=== PATIENT | female | born 1985 | race Caucasian/White ===

== ENCOUNTER → 2016-12-05 | Outpatient (CLI) | payer SELFPAY | LOC: MOB LAB 11:45 | PROVIDERS: ATTEND Obstetrics & Gynecology | DX: O26.92 Pregnancy related conditions, unspecified, second trimester (principal); R63.4 Abnormal weight loss; Z3A.19 19 weeks gestation of pregnancy | CPT/HCPCS: 36415; 84443 ==

== ENCOUNTER → 2016-12-11 | Outpatient (CLI) | payer SELFPAY ==
--- NOTE | 2016-12-11 15:57 | DI ---
US OB GTE 14 WEEKS,12/11/2016 1:36 PM: Clinical History: screening Previous Exam: None at this facility. Findings: Multiple grayscale and color Doppler sonographic images are obtained through the pelvis demonstrating a single live intrauterine gestation in vertex presentation. The cervix is long and closed measuring 2.8 cm in length. Detected Doppler heart tones measure 150 beats per minute. Amniotic fluid index is within normal limits. The placenta is anterior and grade 0 without visible defects. There is limited evaluation of the face. There is normal respiratory motion. Estimated gestational age was determined by a composite of biparietal diameter, head circumference, a bdominal circumference and femur length yielding an estimated gestational age by ultrasound of 20 wee ks zero days. Estimated weight was 327 g (54th percentile). Impression: Single live intrauterine gestation with size equal to dates.
== END ==
LOC: US 13:34
PROVIDERS: ATTEND Obstetrics & Gynecology
DX: Z36 Encounter for antenatal screening of mother (principal); Z3A.19 19 weeks gestation of pregnancy
CPT/HCPCS: 76805

== ENCOUNTER → 2016-12-25 | Outpatient (CLI) | payer SELFPAY ==
--- NOTE | 2016-12-25 16:30 | DI ---
LIMITED OBSTETRICAL ULTRASOUND, 12/25/2016 3:27 PM Clinical History: Followup for completion of anatomic survey. Previous Exam: 12/11/2016. ADJUSTED LMP: 07/25/2016. There is a single live IUP currently in unstable presentation. Amnionic fluid content is normal. Feta l activity is observed as follows: cardiac and extremity. The placenta is anterior corpus and Grade 1 . heart rate is 160 beats/minute and regular. Views of the face are obtained in profile a nd en face and are normal. Readin. Single live fetus with unstable presentation and normal amniotic fluid content. Placenta is anter ior corpus and grade 1. 2. Views of the face are obtained and are normal. This completes the anatomic survey.
== END ==
LOC: US 15:24
PROVIDERS: ATTEND Obstetrics & Gynecology
DX: Z36 Encounter for antenatal screening of mother (principal); Z3A.21 21 weeks gestation of pregnancy
CPT/HCPCS: 76815

== ENCOUNTER → 2017-01-01 | Outpatient (CLI) | payer SELFPAY ==
[2017-01-01 16:51] LABS: BLOOD UREA NITROGEN 9 mg/dL (7-22); BUN/CREATININE RATIO 12.85 (6-20); CALCIUM 9.3 mg/dL (8.7-10.7); CHLORIDE 105 meq/L (98-112); CREATININE 0.7 mg/dL (0.50-1.20); EST GLOMERULAR FILTRATION > 60 (>60 ml/min/1.73m(2)); GLUCOSE 97 mg/dL (78-110); SODIUM 138 meq/L (135-145)
== END ==
LOC: MOB LAB 15:52
PROVIDERS: ATTEND Obstetrics & Gynecology
DX: O26.892 Other specified pregnancy related conditions, second trimester (principal); R25.2 Cramp and spasm; Z3A.22 22 weeks gestation of pregnancy
CPT/HCPCS: 36415; 80048

== ENCOUNTER → 2017-01-01 | Outpatient (CLI) | payer SELFPAY ==
--- NOTE | 2017-01-02 08:38 | DI ---
LIMITED OBSTETRICAL ULTRASOUND FOR CERVICAL LENGTH MEASUREMENT, 01/01/2017 4:24 PM: Clinical History: Abnormal short cervical length identified by ultrasound during the second trimester of this . Previous Exam: 12/25/2016. ADJUSTED LMP: 07/25/2016. Multiple transvaginal scans through the mid sagittal plane of the cervix are obtained. The shortest c ervical length measurement is 40 mm. Review of the previous study shows that when measuring the lengt h of the low-density area felt to represent the cervical canal, the estimated measurement would be 43 mm. This suggests there has been no change. Reading: The cervical length measurement is 40 mm.
== END ==
LOC: US 16:19
PROVIDERS: ATTEND Obstetrics & Gynecology
DX: O26.872 Cervical shortening, second trimester (principal); Z3A.22 22 weeks gestation of pregnancy
CPT/HCPCS: 76815

== ENCOUNTER → 2017-01-29 | Outpatient (CLI) | payer OTHER ==
[2017-01-29 15:56] LABS: HEMATOCRIT 37.8 % (37.0-47.0); HEMOGLOBIN 12.5 g/dL (12.0-16.0); MEAN CORPUSCULAR HEMOGLOBIN 31.8 PG (27-31); MEAN CORPUSCULAR HGB CONC 33.1 g/dL (33-37); MEAN CORPUSCULAR VOLUME 96.2 FL (81-99); MEAN PLATELET VOLUME 10.2 FL (7.4-12.2); RED BLOOD COUNT 3.93 10^6/uL (4.20-5.40)
== END ==
LOC: LAB 14:46
PROVIDERS: ATTEND Obstetrics & Gynecology
DX: Z36 Encounter for antenatal screening of mother (principal); Z3A.26 26 weeks gestation of pregnancy
CPT/HCPCS: 36415; 82950; 85027

== ENCOUNTER → 2017-03-09 | Outpatient (CLI) | payer OTHER | LOC: MOB LAB 12:46 | DX: R30.0 Dysuria (principal) | CPT/HCPCS: 87088 ==

== ENCOUNTER 2017-03-11 10:31 | Outpatient (CLI) | payer OTHER ==
[2017-03-11] MEDS ORDERED: LIDOCAINE W/ SODIUM BICARB 0.5 ML SYR SUBD PRN (11:15)
[2017-03-11] MEDS ORDERED: NORMAL SALINE 10 ML SYRINGE FLUSH IVP PRN (11:15)
[2017-03-11 12:12] LABS: HEMATOCRIT 40.6 % (37.0-47.0); HEMOGLOBIN 13.4 g/dL (12.0-16.0); MEAN CORPUSCULAR VOLUME 95.5 FL (81-99); RED BLOOD COUNT 4.25 10^6/uL (4.20-5.40)
[2017-03-11 12:13] LABS: MEAN CORPUSCULAR HEMOGLOBIN 31.5 PG (27-31); MEAN PLATELET VOLUME 10.9 FL (7.4-12.2)
--- NOTE | 2017-03-11 13:05 | DI ---
US RETROPERITONEUM,03/11/2017 11:19 AM: Clinical History: Costovertebral angle tenderness. Previous Exam: None at this facility. Findings: Multiple grayscale and color Doppler sonographic images are obtained through the retroperitoneum, and demonstrate a normal-appearing right kidney measuring 12.4 cm in length. The left kidney measures 8.8 cm in length without hydronephrosis nor nephrolithiasis. There is a simple cyst noted within the superior medial cortex. The urinary bladder is unremarkable. The left ureteral jet was identified. The right ureteral jet was never identified. Impression: No obstructive uropathy.
[2017-03-11 13:12] LABS: BLOOD UREA NITROGEN 10 mg/dL (7-22); CALCIUM 9.1 mg/dL (8.7-10.7); EST GLOMERULAR FILTRATION > 60 (>60 ml/min/1.73m(2)); SERUM ALBUMIN 3.8 g/dL (3.5-4.8)
[2017-03-11 14:05] LABS: BILIRUBIN,URINE NEGATIVE (NEG); COLOR,URINE YELLOW; GLUCOSE, URINE (UA) NEGATIVE (NEG); NITRATE,URINE NEGATIVE (NEG); OCCULT BLOOD,URINE LARGE (NEG); PH,URINE 6.5 (5.0-8.5); PROTEIN,URINE NEGATIVE (NEG); UROBILINOGEN,URINE 0.2 mg/dL (0.2)
[2017-03-11 14:06] LABS: CLARITY,URINE SLIGHTLY CLOUDY (CLEAR); RBC,URINE >100 /hpf; URINE SAMPLE TYPE CLEAN CATCH URINE; WBC,URINE 0
--- NOTE | 2017-03-11 14:31 | PDOC(PROG) ---
Intake - - Reason for Visit/Chief Complaint: Other (The patient is a 31-year-old 001 at 32-1/2 weeks gestation who called my nurse this morning with the complaint of severe pain with urination, left sided back pain and low-grade fevers at home. The patient was started on nitrofurantoin for presumed urinary tract infection 2 days previously. The patient was seen in the acute care clinic or urgent care clinic with the complaint of dysuria and urinalysis was essentially normal with urine culture is not growing out of specific bacteria. The patient' s symptoms have continued over the past several days and the patient presented to labor and delivery after calling my nurse. The patient's symptoms of a low- grade fever, pain with urination and also just a general malaise. When I spoke with the patient this afternoon, the patient had already had her renal ultrasound bilaterally and labs completed. The patient stated that she has had severe pain with urination over the past several days. No bleeding. The patient has also had back pain but it is lower back pain and now bilateral. The patient has had a temperature up to 99.5 at home but has been using Tylenol to help her symptoms. The patient stated that the catheter urinalysis was extremely painful secondary to the discomfort the patient has. The patient does not have a history of herpes simplex virus. However, last week her did have a lesion on his lower lip that was new and perhaps was a new onset herpes lesion. The patient does have a history of significant reflux in her kidney and her left kidney apparently does not function as well as her right kidney secondary to the reflux. OB history significant for vaginal delivery after SROM. Past medical history significant for her left kidney not functioning well and this stems from significant reflux that the patient had as a and then as a child. This was really diagnosed during her last . Past surgical history breast augmentation No known drug allergies Tobacco cessation about 3 or 4 weeks ago. 5 cigarettes per day at that time. Alcohol occasional none now No drugs OB history with vaginal delivery 1 about 17 years ago. Vaginal delivery after 32 hours a labor and the baby was 7 lbs. 10 oz. 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 No history of HSV. Currently, the patient states that when she is not trying to avoid, the patient does not have significant vaginal pain.) Maternal - Additional Details Additional Details: Lungs clear to auscultation Heart regular rate and rhythm Abdomen is gravid, soft and nontender Back without CVA tenderness bilaterally. The patient does have some low back paraspinous muscle tenderness External genitalia within normal limits Periurethral with slight erythema on the right labia minora but no ulcerations. Speculum exam and bimanual exam were not performed. Results - Labs CBC and BMP: 03/11/17 11:16 03/11/17 11:16 Additional Lab Results: Urinalysis had greater than 100 red blood cells but this was after the catheter urine was completed. No white blood cells. No protein. Urinalysis from 2 days ago was only a dip urinalysis. No micro-. Trace blood. Nothing other significant. Urine culture from 2 days previously was contaminated. No specific bacteria grew out on the culture. Assessment and Plan - Assessment / Plan Additional Assessment/Plan Details: Assessment: IUP 32-1/2 weeks with significant dysuria. Urinalysis shows no white blood cells today and urine culture from 2 days ago did not grow specific back area and urine dip from 2 days ago did not show a large amount of blood or white blood cells. Today's UA with micro-did show a significant amount of blood but this was after the catheter urine specimen was obtained and then the patient voided. There were no specific ulcerations visualized by the nurse's exam or by my exam today. The patient's did have a new lesion on his lower lip that may be herpetic in origin. The patient has significant pain with urination but essentially the urinalysis was normal except for the red blood cells were greater than 100 but this was after the catheter specimen was completed and may have irritated the patient's urethra or periurethral area. The patient's white count is less than 10. Her H&H and platelets are normal. Patient's creatinine is 0.8. Her BUN was 10. Other labs are normal. The patient's ultrasound of her kidneys bilaterally did not show hydronephrosis or did not show dilation of the patient's ureters. There was a small cyst in the left kidney. Also, the left kidney was smaller than her right kidney which is consistent with the patient's history of having reflux and perhaps a slight injury to the left kidney at an earlier age. Plan: The patient may complete her course of nitrofurantoin I would like to add Valtrex 1000 mg by mouth 2 times a day for 7-10 days and perhaps then again at 36 weeks I would like to treat the patient with a suppressive dose to try to prevent a herpes outbreak towards the end of the . If the patient does develop lesions, the patient should let us know but the treatment is Valtrex. The patient should return for increased symptoms. I did explain to the patient that often a patient will have significant pain before lesions develop. However, often the pain is present more often than just with voiding. However, the patient does not have a UTI by UA with micro- today or urinalysis the other day or urine culture the other day. With the patient's having the lesion on his lower lip that could be herpetic in etiology, I would like to treat the patient with an antiviral medication such as Valtrex. The patient expressed understanding. A ozzie-bottle should be used when the patient voids. Also, pyridium could be used for 2 days try to improve the patient's symptoms. Tylenol as needed. The patient's symptoms worsen, the patient should return sooner. - Time Time Spent With Patient: 15-25 Minutes
[2017-03-11 17:47] VITALS: RESP 18; TEMP 97.8
== END 2017-03-11 15:55 | disposition home or self-care (01) ==
LOC: OBOP 10:31
PROVIDERS: ATTEND Obstetrics & Gynecology
DX: O26.893 Other specified pregnancy related conditions, third trimester (principal); R30.0 Dysuria; R50.9 Fever, unspecified; Z3A.32 32 weeks gestation of pregnancy
CPT/HCPCS: 59025; 76770; 80053; 81001; 85027; 87088; 99211

== ENCOUNTER → 2017-03-13 | Outpatient (CLI) | payer OTHER ==
[2017-03-13 10:50] LABS: CLARITY,URINE CLEAR (CLEAR); COLOR,URINE ORANGE; RBC,URINE 25-30 /hpf; URINE SAMPLE TYPE CLEAN CATCH URINE
[2017-03-13 10:51] LABS: BACTERIA,URINE FEW; SQUAMOUS EPITHELIAL CELL,UR RARE
== END ==
LOC: MOB LAB 10:02
PROVIDERS: ATTEND Obstetrics & Gynecology
DX: O26.893 Other specified pregnancy related conditions, third trimester (principal); R30.0 Dysuria; Z3A.33 33 weeks gestation of pregnancy
CPT/HCPCS: 81001; 87088; 87185; 87205

== ENCOUNTER → 2017-03-19 | Outpatient (CLI) | payer SELFPAY ==
[2017-03-19 16:23] LABS: BILIRUBIN,URINE NEGATIVE (NEG); CLARITY,URINE CLEAR (CLEAR); COLOR,URINE YELLOW; GLUCOSE, URINE (UA) NEGATIVE (NEG); NITRATE,URINE NEGATIVE (NEG); OCCULT BLOOD,URINE NEGATIVE (NEG); PROTEIN,URINE NEGATIVE (NEG); UROBILINOGEN,URINE 0.2 mg/dL (0.2)
[2017-03-19 16:57] LABS: BACTERIA,URINE RARE; RBC,URINE 0-1 /hpf; SQUAMOUS EPITHELIAL CELL,UR RARE; URINE SAMPLE TYPE CLEAN CATCH URINE; WBC,URINE 0-1
== END ==
LOC: MOB LAB 15:49
PROVIDERS: ATTEND Obstetrics & Gynecology
DX: O26.893 Other specified pregnancy related conditions, third trimester (principal); R31.9 Hematuria, unspecified; Z3A.33 33 weeks gestation of pregnancy
CPT/HCPCS: 81001

== ENCOUNTER → 2017-04-02 | Outpatient (CLI) | payer OTHER | LOC: MOB LAB 15:47 | PROVIDERS: ATTEND Obstetrics & Gynecology | DX: Z36 Encounter for antenatal screening of mother (principal); Z3A.35 35 weeks gestation of pregnancy | CPT/HCPCS: 87150 ==

== ENCOUNTER 2017-04-16 15:32 | Outpatient (CLI) | payer SELFPAY ==
[2017-04-16] MEDS ORDERED: NORMAL SALINE 10 ML SYRINGE FLUSH IVP PRN (15:56)
[2017-04-16 16:00] VITALS: RESP 16; TEMP 97.9
--- NOTE | 2017-04-16 17:47 | DI ---
US OB , LIMITED,04/16/2017 4:19 PM: Clinical History: Decreased motion. Previous Exam: None at this facility. Findings: Multiple grayscale and color Doppler sonographic images are obtained through the pelvis demonstrating a normal amniotic fluid index (14.0 cm). Detected Doppler heart tones measured 132 beats per minute. The fetus lies in the vertex presentation. Impression: Single live intrauterine gestation with normal amniotic fluid index (14 cm).
--- NOTE | 2017-04-18 09:59 | PDOC(PROG) ---
Intake - - Reason for Visit/Chief Complaint: Decreased Movement Admitted From: Home - LMP: 07/25/16 Estimated Due Date: 05/01/17 Gestational Age in Weeks and Days: 38 Weeks and 1 Days : 2 Para: 1 Term Births: 1 Births: 0 Number of Abortions (Spont./Elective): 0 Living Children: 1 - Labs Blood Type and Rh: A+ Group B Strep: Negative Maternal - Vital Signs Last Taken Vital Signs: Vital Signs - Last Taken Temperature 97.9 F 04/16/17 15:58 Pulse Rate 83 04/16/17 15:58 Respiratory Rate 16 04/16/17 15:58 Blood Pressure 135/75 04/16/17 15:58 Pulse Ox 97 04/16/17 15:58 - Uterine Activity Uterine Contraction Monitor Mode: External Uterine Contraction Pattern: Absent - Vaginal Discharge Vaginal Bleeding Amount: None Vaginal Discharge Amount: None Monitoring - Uterine Activity Uterine Contraction Monitor Mode: External Uterine Contraction Pattern: Absent Results - Bedside Testing Bedside Urine Ketone: Negative Bedside Urine Leukocytes Esterase: Negative Bedside Urine Nitrite: Negative Bedside Urine Occult Blood: Negative Bedside Urine Protein: Negative Bedside Specific Ider: 1.005 Assessment and Plan - Assessment / Plan Additional Assessment/Plan Details: Assessment: IUP 38+ weeks. The patient saw me in clinic and had noted perhaps decreased movement. Nonstress test was reactive and JG was normal in labor and delivery. The patient was sent home with movement precautions. The patient will see me in one week. The patient understands to contact labor and delivery for any questions or decreased movement or regular contractions.
== END 2017-04-16 17:30 | disposition home or self-care (01) ==
LOC: OBOP 15:32
PROVIDERS: ATTEND Obstetrics & Gynecology
DX: O36.8130 Decreased fetal movements, third trimester, not applicable or unspecified (principal); Z3A.37 37 weeks gestation of pregnancy
CPT/HCPCS: 59025; 76815; 81003; 99211

== ENCOUNTER 2017-04-29 16:21 | Inpatient (IN) | payer OTHER ==
[2017-04-29] MEDS ORDERED: diphenhydrAMINE 50 MG/1 ML VIAL IVP PRN (16:48)
[2017-04-29] MEDS ORDERED: Phenylephrine Inj 50 MCG in Normal Saline Flush 0.5 ML IVP PRN (16:48)
[2017-04-29] MEDS ORDERED: LIDOCAINE W/ SODIUM BICARB 0.5 ML SYR SUBD PRN (16:48)
[2017-04-29] MEDS ORDERED: CefOXitin Inj 2 GM in Sodium Chloride 0.9% 100 ML IV PRN (16:48)
[2017-04-29] MEDS ORDERED: CALCIUM CARBONATE 500 MG (TUMS) CHEWABLE TABLET PO PRN (16:48)
[2017-04-29] MEDS ORDERED: Famotidine Inj 20 MG in Normal Saline Flush 10 ML IVP PRN ×4 (16:48)
[2017-04-29] MEDS ORDERED: Carboprost Inj 250 MCG/ML AMP IM PRN (16:48)
[2017-04-29] MEDS ORDERED: CITRIC ACID/SODIUM CITRATE 30 ML CUP PO PRN (16:48)
[2017-04-29] MEDS ORDERED: TERBUTALINE SULFATE 1 MG/1 ML SDV SUBCUT PRN (16:48)
[2017-04-29] MEDS ORDERED: METHYLERGONOVINE MALEATE 0.2 MG/1 ML VIAL IM PRN (16:48)
[2017-04-29] MEDS ORDERED: ONDANSETRON 4 MG/2 ML VIAL IVP PRN (16:48)
[2017-04-29] MEDS ORDERED: Nalbuphine Inj 20 MG/ML Ampule IVP PRN (16:48)
[2017-04-29] MEDS ORDERED: Lidocaine 1% 10 MG/ML - 20 ML VIAL SUBCUT PRN (16:48)
[2017-04-29] MEDS ORDERED: Metoclopramide Inj 10 MG/2 ML VIAL IV PRN (16:48)
[2017-04-29] MEDS ORDERED: NALOXONE 0.4 MG/1 ML VIAL IVP PRN (16:48)
[2017-04-29] MEDS ORDERED: MISOPROSTOL 200 MCG TABLET RECTAL PRN (16:48)
[2017-04-29] MEDS ORDERED: BUTORPHANOL TARTRATE 2 MG/1 ML VIAL IVP PRN (16:48)
[2017-04-29] MEDS ORDERED: Naloxone Inj 0.01 MG in Normal Saline Flush 1 ML IVP PRN (16:48)
[2017-04-29] MEDS ORDERED: NORMAL SALINE 10 ML SYRINGE FLUSH IVP PRN (16:48)
[2017-04-29] MEDS ORDERED: Oxytocin 20 Units + LR 1,000 ML IV SCH (17:00)
[2017-04-29] MEDS: Misoprostol Tab 100 MCG TAB VAGINAL SCH ×2 (20:23→23:00)
--- NOTE | 2017-04-29 20:23 | OB.PROGRES ---
Interval History: The patient is a 31-year-old 001 at 39-5/7 weeks who presented to labor and delivery earlier today stated that she had not been feeling well over the weekend. Positive movement, no leak of fluid, no bleeding. No regular contractions. Positive right upper quadrant pain but the patient could not determine if it was secondary to position and the baby's feet in the right upper quadrant. Labs were obtained which showed an H&H with hemoconcentration of 14 and 41, normal platelets, creatinine of 0.9 and normal liver function tests. Last week we had discussed induction of labor with cervical ripening today at 39-5/7 weeks for elective induction of labor and extreme emotional lability. The patient's emotional lability has improved but the patient has not been feeling well so the patient is admitted for induction of labor with cervical ripening. In clinic today the patient's cervix was 2-3 cm/50% effaced -2 station and moderate in consistency. The patient's has been complicated with low back pain in the mid second trimester. Other than that the patient had a normal Glucola and group B strep was negative. The patient has had some intermittent right upper quadrant pain and labs and an ultrasound of her kidneys was obtained in the middle of February 2017 which were normal. OB history significant for vaginal delivery after SROM. 7 lbs. 4 oz. Past medical history significant for her left kidney not functioning well and this stems from significant reflux that the patient had as a and then as a child. This was really diagnosed during her last . Past surgical history breast augmentation No known drug allergies Tobacco cessation about 3 or 4 weeks ago. 5 cigarettes per day at that time. Alcohol occasional none now No drugs OB history with vaginal delivery 1 about 17 years ago. Vaginal delivery after 32 hours a labor and the baby was 7 lbs. 10 oz. 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 Objective - Cervical Exam Cervical Exam: 2-3/50/-2 cephalic presentation [place]: Some uterine irritability. No regular contractions Heart Rate Interpretation Category: Category I Assessment and Plan - Assessment / Plan Additional Assessment/Plan Details: Assessment: IUP 39-5/7 weeks with negative GBS Patient has just not been feeling well the last several days although positive movement and blood pressure was normal in the clinic today. Labs showed slight hemoconcentration with an H&H 14 and 41 but normal platelets. Liver function tests were normal. Creatinine was 0.9. Membranes were gently swept in the clinic today. No blood with sweeping membranes. Plan: Admit and cervical ripening with Cytotec which is used for stomach ulcers but BAND TIER's of study this extensively over the past 20 years and I discussed this with the patient. We use a low dose for cervical ripening and higher dose sometimes for hemorrhage. Patient expressed understanding to using Cytotec. Consent form was signed for an elective induction although I think that this induction is more medically indicated secondary to the patient not feeling well and not feeling herself considering she is over 39 weeks' gestation. Blood pressures again were normal. Cytotec 25 g per vagina every 4-6 hours if no regular contractions and cervix still need cervical ripening. External monitoring Clear liquids Observe the patient closely.
[2017-04-30] MEDS ORDERED: Oxytocin 20 Units + LR 1,000 ML IV SCH ×2 (02:30→05:45)
[2017-04-30] MEDS: Lactated Ringers-OB Dept 1,000 ML PRIMARY IV SCH ×4 (06:40→20:25)
[2017-04-30] MEDS: Misoprostol Tab 100 MCG TAB VAGINAL SCH ×3 (07:27→14:28)
--- NOTE | 2017-04-30 10:22 | OB.PROGRES ---
Interval History: Currently the patient states that she cannot feel contractions but she can feel some cramping. The patient did not sleep last night. She did rest. The patient has had no bleeding and no gush of fluid. Positive movement. Objective - Cervical Exam Cervical Exam: 3 (tight)/50/-3 cephalic moderately firm in consistency. Membranes swept gently. No blood on my glove after sweeping membranes [place]: Contractions every 2-3 minutes-patient cannot really feel these contractions Heart Rate Interpretation Category: Category I - Vital Signs Last Taken Vital Signs: Vital Signs - Last Taken Temperature 98.0 F 04/30/17 02:45 Pulse Rate 70 04/30/17 05:15 Respiratory Rate 18 04/30/17 03:15 Blood Pressure 123/85 04/30/17 03:15 Pulse Ox 96 04/30/17 06:40 - Additional Details Additional Details: Abdomen is gravid and soft and nontender without guarding or rebound Assessment and Plan - Assessment / Plan Additional Assessment/Plan Details: IUP 39-6/7 weeks Cervix has changed minimally since yesterday afternoon when I checked her in the office. The patient has been administered 1 dose of Cytotec 25 g last evening and early this morning the patient was feeling cramping or contractions every 2-3 minutes so the next dose of Cytotec was not administered. Pitocin was started around 0215 hrs. to 0230 hrs. this morning since the second dose of Cytotec could not be given at that time. Pitocin has been administered since that time with contractions every 1-2 to 2-3 minutes and minimal cervical ripening has been noted. Category 1 heart rate tracing. Blood pressures are normal. Group B strep negative on 04/02/2017 Plan: I discussed with the patient and her my thoughts. I would like to continue the Pitocin for cervical ripening until around 1700 hrs. today. If the patient's cervix has not changed significantly by that time, I would like to stop the Pitocin and have the patient eat a light regular meal and then have the patient rest for several hours (5 or 6 hours). I would most likely give the patient 5 mg of Ambien to help her sleep prior to eating so that it can start to take effect and she can then rest. Once rested, I would like to then administer Cytotec 25 g if the patient is not [place] every 2-3 minutes at that time. If the patient is [place], I would administer Pitocin to continue cervical ripening with that method. The patient has expressed understanding with this current plan. The patient did ask if there was a time where she could actually stopped this and go home, and I expressed to the patient that she could do this at any time and we could attempt this again in a couple days. However, I would like to try the above to determine if this allows for cervical ripening. Then tomorrow afternoon, patient could go home if cervical ripening has not occurred. Of course, as long as the patient's blood pressures are normal and labs are normal. Of significant note, the patient is not upset but she was just asking that question because her cervix is not ripening currently. I expressed understanding with her concerns and questions.
--- NOTE | 2017-04-30 16:49 | OB.PROGRES ---
Interval History: The patient has started to feel her contractions over the past 2-3 hours. No gush of fluid. No bleeding. The patient feels the contractions in her lower abdomen and not her back. Objective - Cervical Exam Cervical Exam: /-2. I can palpate the amniotic sac. I could not determine the exact presentation but the baby may be in the OP presentation currently [place]: Every 2-3 minutes on 6 milliunits of Pitocin Heart Rate Interpretation Category: Category I - Vital Signs Last Taken Vital Signs: Vital Signs - Last Taken Temperature 97.6 F 04/30/17 15:00 Pulse Rate 87 04/30/17 12:53 Respiratory Rate 20 04/30/17 12:53 Blood Pressure 141/83 04/30/17 12:53 Pulse Ox 97 04/30/17 12:53 - Additional Details Additional Details: Abdomen soft and nontender without guarding or rebound Assessment and Plan - Assessment / Plan Additional Assessment/Plan Details: Assessment: IUP 39-6/7 weeks with some cervical change with cervical ripening with low-dose Pitocin. GBS negative history There were a couple blood pressures with a diastolic of 141 but these were with contractions. When not [place], the blood pressures have been normal. Urine dip yesterday was negative for protein. Plan: The patient and her are now discussing whether or not they would like to continue with the cervical ripening with the Pitocin at 6 milliunits. I offered the patient to turn the Pitocin off and wait one to 2 hours to determine if her contractions stop and then allow her to eat and sleep and then restart cervical ripening early in the morning. That was the plan several hours ago but now the patient is considering continuing. I explained to the patient that I do not want to cause the patient to SROM with the Pitocin, although she may spontaneously SROM even if I stopped the Pitocin, and cause a prolonged labor after SROM and the increased potential of a C- section. Patient expressed understanding but is considering her options. The patient is tired but she says she has napped a little bit on and off this afternoon. Addendum: The patient and her decided that they would like to continue the Pitocin until 1930 hrs. At that time, the patient's cervix will be checked and if there is no significant change, the Pitocin be stopped and the patient will be observed to determine if the contractions slow down. If her contractions slow down, the patient may eat around 2030 hrs. to 2100 hrs. Then the patient will rest and then we will restart cervical ripening early in the morning around 0300 hrs. I may prescribe Ambien. The patient will continue external monitoring. If the patient has changed her cervix significantly, the patient may decide that she would like to have AROM and then continue the labor process. If the patient SROM's but her cervix is unchanged, and an IUPC will be placed and Pitocin will be administered per IUPC results. 200 [place] units in 10 minutes.
[2017-04-30] MEDS: fentaNYL Inj 100 MCG/2 ML VIAL IV PRN ×4 (17:18→19:39)
[2017-04-30] MEDS: ePHEDrine Inj 5 MG in Normal Saline Flush 1 ML IVP PRN ×2 (20:55→20:58)
[2017-04-30] MEDS ORDERED: Fent/Bupiv 2mcg/0.0625% Epid 250 ML ONE (20:56)
--- NOTE | 2017-04-30 21:05 | CRNA.PROCE ---
Central Neuraxis Block Placemt - - Safety Measures: Time Out Taken, Site Verified - - Type of Block: Epidural Reason for Block: Analgesia Moniters Used During Block: SPO2, NIBP Positioning: Sitting Skin Prep Used: ChloroPrep Draped: Yes Spinal Needle Used: 18 Hustead 80 mm Local Anesthetic - Enter Amount Used in Comment Field: 1.5 % Xylocaine with Epinephrine 1:200,000 (mL): Yes (5ml) Number of Centimeters Catheter Threaded: 4 Bioclusive Dressing Applied: Yes
[2017-04-30] MEDS ORDERED: fentaNYL 2 MCG/BUPIVACAINE 0.0625%/NS 0.9% 250 ML BAG EPIDURAL SCH (21:15)
[2017-04-30] MEDS ORDERED: HYDROXYZINE PAMOATE 25 MG CAPSULE PO ONE (21:24)
--- NOTE | 2017-04-30 21:32 | OB.PROGRES ---
Interval History: The patient is comfortable now that she had her epidural. Earlier, the patient wanted the Pitocin stopped. It was at 6 milliunits but the contractions were intense even after having fentanyl. The patient requested that the Pitocin be discontinued. The Pitocin was discontinued and 90 minutes later the patient was still having painful contractions though they were 3-6 minutes apart. The patient then requested an epidural and now the patient is comfortable. The patient wishes to sleep now. Currently, she does not want AROM. Objective - Cervical Exam Cervical Exam: /-2 cephalic and cervix is soft. Membranes were palpated [place]: Irregular contractions every 3-6 minutes off Pitocin Heart Rate Interpretation Category: Category I - Vital Signs Last Taken Vital Signs: Vital Signs - Last Taken Temperature 97.6 F 04/30/17 15:00 Pulse Rate 87 04/30/17 12:53 Respiratory Rate 20 04/30/17 12:53 Blood Pressure 141/83 04/30/17 12:53 Pulse Ox 97 04/30/17 19:00 - Additional Details Additional Details: Abdomen is gravid, soft and nontender without guarding or rebound By Arvin's the baby's head is cephalic presentation. The baby's back palpates the patient's abdomen in the midline Assessment and Plan - Assessment / Plan Additional Assessment/Plan Details: Assessment: IUP 39-6/7 weeks with cervical ripening over the past 24 hours with the cervix now 4 cm and 90% effaced. The patient had significant pain even after the Pitocin was stopped so the patient requested an epidural which was placed and now the patient is comfortable. Patient also has a Vences catheter in place. Currently, the patient's membranes are intact and the patient does not wish artificial rupture of membranes currently. The patient wishes to sleep now. Blood pressures have been normal and actually slightly low after the epidural and ephedrine was given. Plan: I have ordered hydroxyzine or Atarax 25 mg by mouth 1 dose. The patient will contract on her own. I may start Pitocin early in the morning and then offer the patient AROM again if the patient has rested. The patient may spontaneously continue the labor and SROM and the patient will be evaluated from that point. The patient is group B strep negative. Clear liquids now that she has the epidural in place. Observe the patient closely. - Time Time Spent With Patient: 15-25 Minutes
[2017-05-01] MEDS: Lactated Ringers-OB Dept 1,000 ML PRIMARY IV SCH ×3 (04:38→13:10)
[2017-05-01] MEDS: Misoprostol Tab 100 MCG TAB VAGINAL SCH (06:19)
--- NOTE | 2017-05-01 06:52 | OB.PROGRES ---
Interval History: The patient slept last night. Patient is comfortable. No problems. Still slightly groggy from the hydroxyzine that was given to the patient last evening to assist her in sleeping. Objective - Cervical Exam Cervical Exam: 4/c/0 AROM with clear fluid [place]: 5 milliunits Pitocin-contractions every 2-3 minutes Heart Rate Interpretation Category: Category I - Vital Signs Last Taken Vital Signs: Vital Signs - Last Taken Temperature 98.4 F 05/01/17 04:00 Pulse Rate 82 05/01/17 04:00 Respiratory Rate 18 05/01/17 04:00 Blood Pressure 114/67 05/01/17 04:00 Pulse Ox 96 05/01/17 04:00 Assessment and Plan - Assessment / Plan Additional Assessment/Plan Details: Assessment: IUP 40 weeks gestation with induction of labor with cervical ripening. Patient's cervix is now 4 cm and completely effaced. The baby's head is at 0 station. AROM with clear fluid. Patient has been afebrile. Blood pressures have been normal. Group B strep was negative. Plan: Reevaluate for cervical change in 2 hours. If no cervical change, IUPC Pitocin was decreased at 3 milliunits secondary to AROM. Will increase depending upon external toco. Observe closely.
[2017-05-01] MEDS ORDERED: LIDOCAINE MPF 2% - 5 ML (20 MG/1 ML) ONE (08:39)
--- NOTE | 2017-05-01 09:24 | OB.PROGRES ---
Interval History: Patient had to have her epidural topped off that now she is feeling better. She had significant pelvic pressure before but not currently. Objective - Cervical Exam Cervical Exam: 8-9/c/0 cephalic [place]: Contractions every 2-3 minutes on 5 milliunits Pitocin Heart Rate Interpretation Category: Category I - Vital Signs Last Taken Vital Signs: Vital Signs - Last Taken Temperature 98.2 F 05/01/17 06:45 Pulse Rate 99 05/01/17 08:00 Respiratory Rate 18 05/01/17 08:00 Blood Pressure 126/72 05/01/17 08:00 Pulse Ox 95 05/01/17 08:00 Assessment and Plan - Assessment / Plan Additional Assessment/Plan Details: Assessment: IUP 40 weeks gestation with active labor with cervical change. Cervix is now 8-9 cm and 0 to +1 station Plan: Continue Pitocin We will set the patient up in the bed to hopefully help the baby descended into the pelvis more Continue care and expectant management
[2017-05-01] MEDS ORDERED: Chloroprocaine 3% MPF (30mg/ml) 20ml vial ONE (10:46)
--- NOTE | 2017-05-01 11:46 | OB.PROGRES ---
Interval History: The patient comfortable. Epidural was topped off again. Objective - Cervical Exam Cervical Exam: ant lip of cervix/ c/0 to +1 station [place]: Frequency of contractions difficult to determine since they are not picking up well currently. Patient on 5 milliunits of Pitocin Heart Rate Interpretation Category: Category I - Vital Signs Last Taken Vital Signs: Vital Signs - Last Taken Temperature 98.2 F 05/01/17 06:45 Pulse Rate 114 H 05/01/17 10:00 Respiratory Rate 18 05/01/17 10:00 Blood Pressure 124/75 05/01/17 10:00 Pulse Ox 94 05/01/17 11:24 Assessment and Plan - Assessment / Plan Additional Assessment/Plan Details: Assessment: IUP 40 weeks with some cervical change progress with anterior lip of cervix palpated. Patient to be placed in steep Fowlers presentation to hopefully help head to descend and anterior lip of the cervix to reduce. Plan: Continue to observe closely Expectant management
[2017-05-01] MEDS ORDERED: fentaNYL Inj 100 MCG/2 ML VIAL ONE (12:03)
--- NOTE | 2017-05-01 12:09 | CRNA.PROGR ---
Anesthesia Note Anesthesia Progress Note: 842 -5 ml of 2% Lido mpf via epidural. 1043- 8 ml of 3 % Nesacaine epidural catheter. 1200- 50 mcgs Fentanyl iv for Left lower quadrant window- Now pushing. 1252-50 mcgs Fentanyl iv-for placental extraction 1252 10 ml of 3% Nesacaine via epidural catheter for placental extraction 1303 2 Gram Cefoxitin iv per Dr. Floyd verbal order
--- NOTE | 2017-05-01 13:49 | OB.OP.NOTE ---
Operative Report Surgeon: Everett Anesthesia Type: Regional (Epidural IV fentanyl), Local (1% lidocaine for episiotomy) Anesthesia Provider: Germania Wells CRNA (Guillermo Shaw and then Germania Wells) Surgery Date: 05/01/17 Preoperative Diagnosis: IUP 40 weeks. Maternal exhaustion and extreme maternal discomfort. Small umbilical cord Postoperative Diagnosis: Same. Avulsion of umbilical cord from placenta Procedure: Induction of labor. Cervical ripening with Cytotec and then Pitocin. Pitocin augmentation of labor. Artificial rupture of membranes. Attempted low vacuum delivery-please see operative report. Spontaneous vaginal delivery over midline episiotomy. manual extraction of placenta. Repair of episiotomy Estimated Blood Loss (mL): 800 Fluids: Pitocin post , post manual extraction of placenta Complications: None apparent Findings at Surgery: Small attenuated umbilical cord Findings were a female infant with Apgars 6 at 1 minute, 6 at 5 minutes, and 6 at 10 minutes with 2 off for tone Weight is currently pending Nuchal cord 2 reduced after the baby was delivered Blood gas showed a pH of 7.172, PCO2 of 40.2, HCO3 of 14.7, base excess of -14 Midline episiotomy without extension-repaired Avulsion of umbilical cord from placenta Manual extraction of placenta with gentle exploration of the patient's uterus Indications for the Procedure: The patient underwent induction of labor with cervical ripening at 39-5/7 weeks secondary to the patient requesting it initially but then patient not feeling well for several days prior to induction. Please see my notes Description of Procedure: I was contacted by labor and delivery secondary to the patient having significant left lower quadrant pain and the cervix was an anterior lip. The patient did have an epidural and previously, the epidural was providing good pain relief. On exam of her cervix, the patient had an anterior lip of her cervix which was reducible. I reduced the cervix and had the patient push and this helped relieve the patient's pain temporarily. However, the patient's pain returned and the patient stated that she needed pain relief. Anesthesia was consulted and 50 g of fentanyl IV was given to the patient at the beginning of the second stage of labor. The epidural was not dosed secondary to anesthesia determining that the patient would not be able to have a good expulsive effort if lidocaine was administered via the epidural. The patient started pushing with contractions and brought the baby down from +1 station to +3 station over a moderate time period. During the first stage of labor, heart rate tracing was category 1. During the second stage of labor there were variations of the heart rate secondary to pushing and descent of the baby's head. Secondary to the patient's significant pain and after the patient had brought the baby down that during pushing the baby's scalp was visible on the perineum without the patient's labia, I offered the patient a vacuum-assisted vaginal delivery. The patient readily agreed. The Vences catheter had just been removed from the patient's bladder. The baby was in the OA presentation by exam. The vacuum was placed and I applied suction to the green area and then started to pull gently with the patient having a contraction and pushing but the edge of the vacuum was near a fontanelle so I reduced the pressure and removed the vacuum. The patient continued pushing for that cycle of pushes. I then placed the vacuum again and it was found to be appropriately placed and a vacuum to the green area was completed. With the patient pushing I pulled and then was pulling up but needed to cut an episiotomy secondary to the patient's tight perineum. However, the patient has significant pain when I palpated the patient 's perineum with pickups. Therefore, I stopped pulling with the vacuum as the patient pushed and released the vacuum pressure. I then injected 1% lidocaine into the patient's perineum actually over the old scar site from when the patient delivered 18 years previously. Then the patient pushed again and I actually cut an episiotomy midline over the old scar site and the baby actually delivered with the mother pushing without the vacuum assist. The mother continued to push and I noticed a nuchal cord 2 but the mother continued to push and the baby's anterior posterior shoulder and both arms delivered. The nuchal cord 2 was reduced on the perineum. Then with the mother pushing the baby delivered completely. I bulb suctioned the baby's mouth and nose. There was some terminal meconium. The cord was then clamped and cut. A section of cord was obtained for cord gases and then cord blood was obtained. The cord gases showed a pH of 7.172, PCO2 of 40.2, HCO3 of 14.7, base excess of -14 The umbilical cord was quite small and attenuated. I examined the patient's perineum and it appeared that there was no extension from the midline episiotomy. I then gently had the patient push while trying to deliver the placenta a couple times. Gentle traction was applied and after 32 with gentle traction the umbilical cord avulsed from the placenta. There was no heavy vaginal bleeding at the time. Simultaneously to the cord avulsion from the placenta, the patient's IV infiltrated. Also, I was requesting anesthesia is present so they can administer something through the patient's epidural to help with pain control so that I could manually extract the patient's placenta. The IV was started again. The epidural was dosed and I waited a couple minutes. The patient started having some bleeding at the perineum which was bright red blood. The patient's pulse was 104 and the blood pressure was good. I do not recall the exact reading at that time. I then placed my right gloved and gowned hand through the patient's vagina and through the cervix into the patient's fundus while using my left hand abdominally to gently manipulate the uterus so that I would be able to manually extract the placenta but not cause a uterine perforation. Patient's placenta was anterior by the ultrasound done at 20 weeks. I had reviewed this prior to the delivery. I was able to manually extract some placenta initially and then doing this 2 more times I believe that I was able to completely extract the placenta. I then used my hand with a Ray-Isabella around 2 fingers on my right hand and introduced it through the patient's vagina and cervix and then into the uterus to gently curet the endometrial lining while my left hand-controlled the fundus of the uterus from the outside abdominal area. I did this 2 different times and there was minimal bleeding and I could not palpate any more cotyledons that may be retained. The manual extraction of placenta was completed for this time. I did explain to the patient that if she develops an infection or if she has increased bleeding and an ultrasound is completed to look for retained placenta and there is retained placenta that the patient may need a D&C in the future. The patient expressed understanding. Mefoxin 2 g IV was administered after manually extracting the placenta. A rectal exam was completed and there was good sphincter tone. There was no extension of the midline episiotomy. Gown and glove was then changed and the midline episiotomy was repaired in the usual fashion starting from the vaginal aspect and in a running locking fashion and then diving down and then tying the knot after reapproximating the perineum from a deeper aspect. Then continuing closing the deeper perineum and then running a subcuticular stitch closing the peritoneum and then going back into the vagina and tying the knot inside the vagina. A rectal exam was completed again and I cannot palpate any suture and the episiotomy appeared to be intact. Needle counts are correct 2 and disposed of. The placenta was examined. The patient's perineum was examined again with clean gloves and was rinsed and irrigated. The patient would recover in the room. The baby's Apgars were 6 at 1 minute, 6 at 5 minutes, and 6 at 10 minutes. The baby had decreased tone initially and some grunting. The baby was brought to the nursery. Bubble CPAP was used. The tone increased. The baby is currently continuing to be evaluated. EBL was 800 mL. Plan: A CBC will be checked later today and then in the morning.
[2017-05-01] MEDS ORDERED: Ondansetron ODT Tab 4 MG TAB PO PRN (14:15)
[2017-05-01] MEDS ORDERED: Oxytocin 20 Units + LR 1,000 ML IV SCH (14:15)
[2017-05-01] MEDS ORDERED: ACETAMINOPHEN 325 MG TABLET PO PRN (14:15)
[2017-05-01] MEDS ORDERED: DIPH,PERTUSS,TET(ADACEL) VAC/PF 0.5 ML (Tdap) IM SCH (14:15)
[2017-05-01] MEDS ORDERED: diphenhydrAMINE 25 MG CAPSULE PO PRN (14:15)
[2017-05-01] MEDS ORDERED: NORMAL SALINE 10 ML SYRINGE FLUSH IVP PRN (14:15)
[2017-05-01] MEDS ORDERED: Carboprost Inj 250 MCG/ML AMP IM PRN (14:15)
[2017-05-01] MEDS ORDERED: Methylergonovine Tab 0.2 MG TAB PO PRN (14:15)
[2017-05-01] MEDS ORDERED: LANOLIN HPA 40 GM TUBE TOPICAL PRN (14:15)
[2017-05-01] MEDS ORDERED: OXYTOCIN 10 UNIT/1 ML IM ONE (14:15)
[2017-05-01] MEDS ORDERED: BENZOCAINE/MENTHOL SPRAY 56 GM BOTTLE TOPICAL PRN (14:15)
[2017-05-01] MEDS ORDERED: METHYLERGONOVINE MALEATE 0.2 MG/1 ML VIAL IM PRN (14:15)
[2017-05-01] MEDS ORDERED: diphenhydrAMINE 50 MG/1 ML VIAL IVP PRN (14:15)
[2017-05-01] MEDS ORDERED: ONDANSETRON 4 MG/2 ML VIAL IVP PRN (14:15)
[2017-05-01] MEDS ORDERED: Nalbuphine Inj 20 MG/ML Ampule IVP PRN (14:15)
[2017-05-01] MEDS ORDERED: MISOPROSTOL 200 MCG TABLET RECTAL ONE (14:15)
[2017-05-01] MEDS ORDERED: HYDROcodone-APAP 5 MG -325 MG TABLET PO PRN (14:15)
[2017-05-01] MEDS ORDERED: CALCIUM CARBONATE 500 MG (TUMS) CHEWABLE TABLET PO PRN (14:15)
[2017-05-01] MEDS ORDERED: Lidocaine Inj 1% 20 ML ONE (14:21)
[2017-05-01] MEDS: GLYCERIN/WITCH HAZEL 1 BOX TOPICAL PRN (15:45)
--- NOTE | 2017-05-01 17:43 | DI ---
KUB, 05/01/2017 1:51 PM: Clinical History: Incorrect sponge count following delivery. Previous Exam: None at this facility. There are no soft tissue or bony abnormalities. Bowel gas pattern, psoas margins, and flank stripes a re normal. There is no free air or fluid. There are no abnormal radiodensities, and there is no evide nce of a retained surgical sponge. The uterus remains enlarged consistent with the patient's immediat e status. Reading: Normal KUB exam. There is no evidence of a retained surgical sponge.
[2017-05-01] MEDS: IBUPROFEN 800 MG TABLET PO PRN (18:53)
[2017-05-01] MEDS: DOCUSATE 100 MG CAPSULE PO SCH (21:11)
[2017-05-02 05:08] VITALS: TEMP 97.9
[2017-05-02 06:45] LABS: HEMATOCRIT 29.7 % (37.0-47.0); MEAN CORPUSCULAR HEMOGLOBIN 32.4 PG (27-31); MEAN CORPUSCULAR HGB CONC 33.7 g/dL (33-37); MEAN CORPUSCULAR VOLUME 96.1 FL (81-99); MEAN PLATELET VOLUME 11.6 FL (7.4-12.2); RED BLOOD COUNT 3.09 10^6/uL (4.20-5.40)
[2017-05-02] MEDS: IBUPROFEN 800 MG TABLET PO PRN (06:45)
[2017-05-02 06:57] LABS: BLOOD UREA NITROGEN 12 mg/dL (7-22); BUN/CREATININE RATIO 13.33 (6-20); CALCIUM 7.9 mg/dL (8.7-10.7); EST GLOMERULAR FILTRATION > 60 (>60 ml/min/1.73m(2)); SERUM ALBUMIN 2.7 g/dL (3.5-4.8)
--- NOTE | 2017-05-02 08:19 | OB.PROGRES ---
Subjective Post Day: 1 Pain Management: PO Vences Catheter: No Flatus: Yes Diet: Regular [place] Feeding Method: Exculsively Ambulating: Yes Concerns / Additional Information: The patient states that she is feeling well. Breast-feeding. Bleeding has slowed significantly. The patient would like to go home. The baby spent some time with the nurse last night so the patient could sleep but otherwise the baby has been in the patient's room. No problems. Objective - General General Appearance: POSITIVE: No Acute Distress, Cooperative - Cardiovacular Cardiovascular Exam: POSITIVE: RRR Edema: No Pedal Edema Extremities: Negative Corby's - Bilaterally - Respiratory Respiratory Exam: POSITIVE: Clear to Auscultation - Bilaterally - Fundus/Lochia/Perineum Uterus Consistency: Firm (Firm with massage) Uterus Position: POSITIVE: Below Umbilicus (-1) Assesstment / Plan Assessment / Plan: Assessment: day #1 status post spontaneous vaginal delivery over midline episiotomy and then manual extraction of placenta secondary to a cord avulsion of a very attenuated small umbilical cord. The patient's H&H is the same as last evening. Her white count was 11,600 and her H&H was 10 and 30. Platelets are 156,000. Liver function tests were normal. Creatinine was 0.9 which is the same as it was earlier this week antepartum. Blood pressures been normal. Her last pulse was 76. Patient is feeling well. The patient's bleeding has slowed. The patient understands that she is at slight increased risk for retained placenta secondary to manual extraction of the placenta. Plan: Continue care Ibuprofen 800 mg by mouth 3 times a day with food or milk Ferrous sulfate 325 mg 1 tablet daily for 1 month Colace 100 mg 1 capsule daily to twice a day when necessary constipation The patient should continue on a multivitamin or vitamin daily while she is in child bearing years The patient should follow-up at 6 weeks for a check. Additionally, the patient should follow-up for increased bleeding. The patient will be observed today but if the baby is discharged today, I could discharge the patient today since the patient is reliable to return for increased problems. Usual precautions including to return for fever or heavy bleeding or any other problems or depression.
[2017-05-02] MEDS: DOCUSATE 100 MG CAPSULE PO SCH (08:25)
--- NOTE | 2017-05-02 08:30 | DCSUMMARY ---
Hospitalization Summary Admit Date: 04/29/17 Primary Diagnosis:: IUP 39-5/7 weeks for induction Secondary Diagnosis:: Preoperative Diagnosis: IUP 40 weeks. Maternal exhaustion and extreme maternal discomfort. Small umbilical cord Postoperative Diagnosis: Same. Avulsion of umbilical cord from placenta Procedure: Induction of labor. Cervical ripening with Cytotec and then Pitocin. Pitocin augmentation of labor. Artificial rupture of membranes. Attempted low vacuum delivery-please see operative report. Spontaneous vaginal delivery over midline episiotomy. manual extraction of placenta. Repair of episiotomy Estimated Blood Loss (mL): 800 Fluids: Pitocin post , post manual extraction of placenta Complications: None apparent Findings at Surgery: Small attenuated umbilical cord Findings were a female infant with Apgars 6 at 1 minute, 6 at 5 minutes, and 6 at 10 minutes with 2 off for tone Weight is currently pending Nuchal cord 2 reduced after the baby was delivered Blood gas showed a pH of 7.172, PCO2 of 40.2, HCO3 of 14.7, base excess of -14 Midline episiotomy without extension-repaired Avulsion of umbilical cord from placenta Manual extraction of placenta with gentle exploration of the patient's uterus Indications for the Procedure: The patient underwent induction of labor with cervical ripening at 39-5/7 weeks secondary to the patient requesting it initially but then patient not feeling well for several days prior to induction. Please see my notes Primary Surgery and Date: 05/01/2017 Delivery Type: Vaginal Hospital Course: The patient was admitted to the hospital on 04/29/2017 and underwent cervical ripening. The cervical ripening took a little bit more than 24 hours and then the patient wanted to sleep some. The patient underwent Pitocin augmentation of her contractions on 05/01/2017 and then delivered mid day on May 01 by spontaneous vaginal delivery over a midline episiotomy. The patient's umbilical cord was small and attenuated and avulsed from the placenta during the third stage of labor. Manual extraction of the placenta occurred. The patient's bleeding slowed on post day #1. Her H&H was stable from post day #0 to day #1. The patient did receive 1 dose of IV antibiotics after the third stage of labor was completed with manual extraction of the placenta. On day #1 the patient was doing well and her bleeding had slowed significantly. / Postop Complications: None currently. [place] Complications: The baby had transient tachypnea of or was affected by some fentanyl that the patient was given during the second stage of labor. The baby was in the nursery for a couple hours but then was greatly improved and has spent the rest of the time in the patient's room with her and her . Please see the pediatric notes for details. Exam - Vitals Vital Signs: Vital Signs Temperature 97.9 F Temperature Source Oral Pulse Rate [Pulse Oximeter 116 Right] Pulse Rate 76 Respiratory Rate [Contractions 18 ] Respiratory Rate 18 Blood Pressure [Left Arm] 107/60 Blood Pressure 127/84 Pulse Ox 96 Oxygen Flow Rate [Contractions ra ] Oxygen Delivery Method Room Air Height 5 ft 10 in Weight 215 lb
[2017-05-02 08:39] VITALS: RESP 16
[2017-05-02] MEDS ORDERED: Prenatal Multivitamin Tab 1 TAB TAB PO SCH (09:00)
[2017-05-02] MEDS: GLYCERIN/WITCH HAZEL 1 BOX TOPICAL PRN (13:19)
--- NOTE | 2017-05-02 13:32 | CRNA.PROGR ---
Anesthesia Note Anesthesia Progress Note: Post Epidural Note Pt is up, dressed and ambulating, has been up to shower. She is tolerating regular diet. She is waiting to be discharged at this time. She denies any residual problems from the epidural. Current VSS. Vital Signs (Last 8 hours) Temp Pulse Pulse Resp BP Pulse Ox 05/02/17 08:38 97.9 F 80 16 136/69 97 05/02/17 07:00 80
--- NOTE | 2017-05-02 13:48 | OB.PROGRES ---
Objective - Labs CBC and BMP: 05/02/17 06:37 05/02/17 06:37 Labs - Last 24 Hours: Laboratory Results 05/01/17 05/02/17 Range/Units 20:17 06:37 WBC 11.60 H (4.8-10.8) 10^3/uL RBC 3.09 L (4.20-5.40) 10^6/uL Hgb 9.9 L 10.0 L (12.0-16.0) g/dL Hct 29.7 L (37.0-47.0) % MCV 96.1 (81-99) FL MCH 32.4 H (27-31) PG MCHC 33.7 (33-37) g/dL RDW Std Deviation 47.2 (39-50) fL RDW Coeff of Nathanael 14.1 (11.5-14.5) % Plt Count 156 (140-350) 10*3/uL MPV 11.6 (7.4-12.2) FL Sodium 136 (135-145) meq/L Potassium 3.9 (3.8-5.2) meq/L Chloride 110 (98-112) meq/L Carbon Dioxide 22 L (23-33) meq/L Anion Gap 4 L (5-20) BUN 12 (7-22) mg/dL Creatinine 0.9 (0.50-1.20) mg/dL Estimated GFR > 60 (>60 ml/min/1.73m(2)) BUN/Creatinine Ratio 13.33 (6-20) Glucose 84 (78-110) mg/dL Calculated Osmolality 280.0 (267-292) mOsm/kg Calcium 7.9 L (8.7-10.7) mg/dL Total Bilirubin 0.3 (0.3-1.2) mg/dL AST 34 (8-39) IU/L ALT 32 (9-52) IU/L Alkaline Phosphatase 77 (38-126) IU/L Total Protein 5.4 L (6.1-8.0) g/dL Albumin 2.7 L (3.5-4.8) g/dL Globulin 2.7 (2.50-4.10) g/dL Albumin/Globulin Ratio 1.00 L (1.3-2.0) mg/g - Vital Signs Last Taken Vital Signs: Vital Signs - Last Taken Temperature 97.9 F 05/02/17 08:38 Pulse Rate 80 05/02/17 08:38 Respiratory Rate 16 05/02/17 08:38 Blood Pressure 136/69 05/02/17 08:38 Pulse Ox 97 05/02/17 08:38 Assessment and Plan - Assessment / Plan Additional Assessment/Plan Details: I spoke with the patient again and her baby was discharged home. The patient states her bleeding has improved even more. The patient would like to go home later this afternoon. I will discharge the patient. Home with specific precautions that we discussed again. Fever or increased bleeding over the next several days, the patient should let us know. Patient agreed.
== END 2017-05-02 15:20 | disposition home or self-care (01) | DRG 775 ==
LOC: OBIP 16:21
PROVIDERS: ADMIT Obstetrics & Gynecology; ATTEND Obstetrics & Gynecology
PROC: 3E0P7GC Introduction of Other Therapeutic Substance into Female Reproductive, Via Natural or Artificial Opening (ICD-10-PCS; 2017-04-29)
PROC: 10E0XZZ Delivery of Products of Conception, External Approach (ICD-10-PCS; principal; 2017-05-01)
PROC: 0W8NXZZ Division of Female Perineum, External Approach (ICD-10-PCS; principal; 2017-05-01)
DX: O26.813 Pregnancy related exhaustion and fatigue, third trimester (principal); Z3A.40 40 weeks gestation of pregnancy; Z37.0 Single live birth; O69.81X0 Labor and delivery complicated by cord around neck, without compression, not applicable or unspecified
CPT/HCPCS: 36415; 74000; 80053; 85018; 85027; J2001; J2400; J2405; J3010; J3490; J7050; J7120; Q0177

== ENCOUNTER → 2017-04-29 | Outpatient (CLI) | payer OTHER ==
[2017-04-29 14:02] LABS: BASOPHILS # (AUTO) 0.04 10*3/UL; BASOPHILS % (AUTO) 0.4 % (0-1); EOSINOPHILS # (AUTO) 0.02 10*3/UL; EOSINOPHILS % (AUTO) 0.2 % (0-8); LYMPHOCYTES # (AUTO) 1.77 10*3/uL; MEAN CORPUSCULAR HGB CONC 34.1 g/dL (33-37); MEAN CORPUSCULAR VOLUME 93.8 FL (81-99); MEAN PLATELET VOLUME 11.8 FL (7.4-12.2); MONOCYTES # (AUTO) 0.86 10*3/UL (0.3-0.8); NEUTROPHILS # (AUTO) 6.79 10*3/UL; NEUTROPHILS % (AUTO) 71.4 % (50-80); RED BLOOD COUNT 4.37 10^6/uL (4.20-5.40)
[2017-04-29 14:20] LABS: PLATELET MORPHOLOGY COMMENT NORMAL MORPHOLOGY (NORM); RBC MORPHOLOGY COMMENT NORMAL MORPHOLOGY (NORM); WBC MORPHOLOGY COMMENT NORMAL MORPHOLOGY (NORM)
[2017-04-29 14:22] LABS: BLOOD UREA NITROGEN 12 mg/dL (7-22); BUN/CREATININE RATIO 13.33 (6-20); CALCIUM 9.1 mg/dL (8.7-10.7); EST GLOMERULAR FILTRATION > 60 (>60 ml/min/1.73m(2)); SERUM ALBUMIN 3.8 g/dL (3.5-4.8)
== END ==
LOC: LAB 13:42
PROVIDERS: ATTEND Obstetrics & Gynecology
DX: O26.893 Other specified pregnancy related conditions, third trimester (principal); R10.11 Right upper quadrant pain; Z3A.39 39 weeks gestation of pregnancy
CPT/HCPCS: 36415; 80053; 85025